=== PATIENT | female | born 1985 | race Caucasian/White ===

== ENCOUNTER 2018-09-20 10:39 | Emergency (ER) | payer SELFPAY ==
[~2018-09-20 10:39] MED LIST: Sodium Chloride 0.9% 1,000 ML BAG ONE
[2018-09-20] MEDS ORDERED: Acetaminophen 325 MG TAB ONE (11:22)
[2018-09-20] MEDS ORDERED: Sodium Chloride 0.9% 1,000 ML ONE (11:22)
[2018-09-20] MEDS ORDERED: cefTRIAXone\\ROCEPHIN 1 GM VIAL ONE (11:22)
[2018-09-20] MEDS ORDERED: Dexamethasone 10 MG/ML VIAL ONE (11:22)
[2018-09-20] MEDS ORDERED: Ketorolac Tromethamine 30 MG/ML VIAL ONE (11:22)
[2018-09-20] MEDS ORDERED: Sodium Chloride 0.9% 100 ML ONE (11:22)
[2018-09-20] MEDS ORDERED: Acetaminophen 500 MG TAB ONE (11:23)
[2018-09-20] MEDS ORDERED: Oseltamivir 75 MG CAP ONE (12:51)
== END 2018-09-20 13:55 | disposition home or self-care (01) ==
LOC: MADERS 10:39
DX: J11.1 Influenza due to unidentified influenza virus with other respiratory manifestations (principal)
CPT/HCPCS: 87804; 96361; 96365; 96375; J0696; J1100; J1885; J3490; J7050